=== PATIENT | female | born 1945 | race Caucasian/White ===

== ENCOUNTER → 2018-03-24 | Outpatient (CLI) | payer MEDICARE, OTHER ==
[~2018-03-24] MED LIST: ACYC-114 PO; BUTA1TAB40 PO; FURO20TA3 PO; GABA300C10 PO; MELO15TA24 PO; OMEP-110 PO; OMNIPAQUE 350 MG/ML, 100ML BOTTLE ONE; OXYC5CAP2 PO; POTASSIUM CHLORIDE PO; SIMV40TA3 PO; TIZA4CAP PO; TRAM50TA2 PO; ZOLP-413 PO
== END ==
LOC: CFH 12:39
PROVIDERS: ATTEND Family Medicine
DX: R10.9 Unspecified abdominal pain (principal)
CPT/HCPCS: 74177; 82565; Q9967

== ENCOUNTER → 2018-04-02 | Outpatient (CLI) | payer MEDICARE, OTHER ==
[~2018-04-02] MED LIST changes: -OMNIPAQUE 350 MG/ML, 100ML BOTTLE ONE
== END | disposition home or self-care (01) ==
LOC: CFH 10:43
PROVIDERS: ATTEND Family Medicine
DX: N95.8 Other specified menopausal and perimenopausal disorders (principal); R92.2 Inconclusive mammogram
CPT/HCPCS: 77063; 77067

== ENCOUNTER → 2018-09-30 | Outpatient (CLI) | payer MEDICARE, OTHER | END | disposition home or self-care (01) | LOC: CFH 09:50 | PROVIDERS: ATTEND Physical Medicine & Rehabilitation | DX: Z13.820 Encounter for screening for osteoporosis (principal); M85.88 Other specified disorders of bone density and structure, other site; M47.897 Other spondylosis, lumbosacral region; M48.07 Spinal stenosis, lumbosacral region; M25.552 Pain in left hip; M96.1 Postlaminectomy syndrome, not elsewhere classified; N95.8 Other specified menopausal and perimenopausal disorders | CPT/HCPCS: 72148; 77080 ==

== ENCOUNTER → 2021-01-10 | Outpatient (CLI) | payer MEDICARE, OTHER ==
[~2021-01-10] MED LIST changes: +CHOL10003 PO; +SIMV40TA20 PO; -SIMV40TA3 PO; +SIMV5TAB14 PO; +VENL37.57 PO
== END | disposition home or self-care (01) ==
LOC: STAR 10:16
PROVIDERS: ATTEND Obstetrics & Gynecology Female Pelvic Medicine and Reconstructive Surgery
DX: Z01.818 Encounter for other preprocedural examination (principal); R10.2 Pelvic and perineal pain; N81.10 Cystocele, unspecified; N81.6 Rectocele; N39.3 Stress incontinence (female) (male); Z20.822 Contact with and (suspected) exposure to COVID-19
CPT/HCPCS: 93005; U0003

== ENCOUNTER 2021-01-16 05:22 | Day surgery (SDC) | payer MEDICARE, OTHER ==
[~2021-01-16] VITALS: Ht 157.5 cm; Wt 84.7 kg
[2021-01-16 06:15] VITALS: BP 131/85
[2021-01-16] MEDS ORDERED: CHLORHEXIDINE 15 ML UDC ONE (06:17)
[2021-01-16] MEDS ORDERED: CHLORHEXIDINE 15 ML UDC MM ONE (06:30)
[2021-01-16] MEDS ORDERED: LACTATED RINGERS 1,000 ML IV SCH (06:30)
[2021-01-16] MEDS ORDERED: EPINEPHRINE 1 MG/ML, 1ML ONE (06:51)
[2021-01-16] MEDS ORDERED: FUROSEMIDE 20 MG/2 ML ONE (06:51)
[2021-01-16] MEDS ORDERED: BUPIVACAINE/PF 0.25% ONE (06:51)
[2021-01-16] MEDS ORDERED: NEOMY/POLYMYXIN B GU IRR. 1 ML ONE (06:52)
[2021-01-16] MEDS ORDERED: FENTANYL PF 100 MCG/2ML ONE (07:19)
[2021-01-16] MEDS ORDERED: PROPOFOL 100 ML ONE (07:22)
[2021-01-16] MEDS ORDERED: PROPOFOL 50 ML ONE (07:33)
[2021-01-16] MEDS ORDERED: ONDANSETRON 2MG/ML, 2ML ONE ×2 (08:07→08:25)
[2021-01-16] MEDS ORDERED: ROCURONIUM 10MG/ML,5ML ONE (08:07)
[2021-01-16] MEDS ORDERED: PROPOFOL 10 MG/ML, 20ML ONE (08:07)
[2021-01-16] MEDS ORDERED: NEOSTIGMINE 1 MG/ML, 10ML ONE (08:07)
[2021-01-16] MEDS ORDERED: CEFAZOLIN 1,000 MG ONE (08:07)
[2021-01-16] MEDS ORDERED: DEXAMETHASONE 4 MG/ML, 1ML ONE (08:07)
[2021-01-16] MEDS ORDERED: SUCCINYLCHOLINE 20 MG/ML, 10ML ONE (08:07)
[2021-01-16] MEDS ORDERED: GLYCOPYRROLATE 0.2MG/1ML, 5ML ONE (08:07)
[2021-01-16] MEDS ORDERED: FENTANYL PF 100 MCG/2ML IV PRN (08:30)
[2021-01-16] MEDS ORDERED: OXYcodone 5 MG/5 ML ORAL.SOL UDC PO PRN (08:30)
[2021-01-16] MEDS ORDERED: PROMETHAZINE 25 MG/ML, 1ML IV PRN (08:30)
[2021-01-16] MEDS ORDERED: hydrALAzine 20 MG/ML, 1ML IV PRN (08:30)
[2021-01-16] MEDS ORDERED: DIAZEPAM 5 MG/ML, 2ML IVPush PRN (08:30)
[2021-01-16] MEDS ORDERED: HYDROmorphone 2 MG/ML, 1ML IVPush PRN (08:30)
[2021-01-16] MEDS ORDERED: LABETALOL 5MG/ML, 20ML IV PRN (08:30)
[2021-01-16] MEDS ORDERED: ACETAMINOPHEN 325 MG TABLET PO PRN (08:30)
[2021-01-16] MEDS ORDERED: KETOROLAC 30 MG/1 ML IV PRN (08:30)
[2021-01-16] MEDS ORDERED: ALBUTEROL SULFATE 2.5 MG/3 ML NPPB PRN (08:30)
[2021-01-16] MEDS ORDERED: MEPERIDINE/PF 25MG/0.5ML IVPush PRN (08:30)
[2021-01-16] MEDS ORDERED: KETOROLAC 30 MG/1 ML ONE (08:53)
[2021-01-16] MEDS ORDERED: ONDANSETRON 2MG/ML, 2ML IVPush ONE (09:00)
[2021-01-16] MEDS ORDERED: HYDROcodone/APAP 5/325 TABLET ONE (09:29)
[2021-01-16] MEDS ORDERED: HYDROcodone/APAP 5/325 TABLET PO PRN (09:30)
== END 2021-01-16 10:15 | disposition home or self-care (01) ==
LOC: OUT 05:22
PROVIDERS: ATTEND Obstetrics & Gynecology Female Pelvic Medicine and Reconstructive Surgery
DX: N81.89 Other female genital prolapse (principal); N39.46 Mixed incontinence; N81.11 Cystocele, midline; N81.5 Vaginal enterocele; N81.6 Rectocele; E78.00 Pure hypercholesterolemia, unspecified; K21.9 Gastro-esophageal reflux disease without esophagitis; Z79.1 Long term (current) use of non-steroidal anti-inflammatories (NSAID); Z79.899 Other long term (current) drug therapy; Z88.2 Allergy status to sulfonamides; Z88.8 Allergy status to other drugs, medicaments and biological substances; Z91.040 Latex allergy status; Z90.710 Acquired absence of both cervix and uterus; Z87.442 Personal history of urinary calculi; Z98.890 Other specified postprocedural states
CPT/HCPCS: 57265; 57282; 57288; C1771; J0171; J0330; J0690; J1100; J1885; J1940; J2405; J2704; J2710; J3010; J7120

== ENCOUNTER → 2021-04-18 | Outpatient (CLI) | payer MEDICARE ==
[~2021-04-18] MED LIST changes: -ACYC-114 PO; +ACYC-40 PO; +OMNIPAQUE 350 MG/ML, 100ML BOTTLE ONE
== END | disposition home or self-care (01) ==
LOC: CFH 11:29
PROVIDERS: ATTEND Family Medicine
DX: N20.0 Calculus of kidney (principal); N13.30 Unspecified hydronephrosis; K76.0 Fatty (change of) liver, not elsewhere classified; M51.37 Other intervertebral disc degeneration, lumbosacral region; K57.30 Diverticulosis of large intestine without perforation or abscess without bleeding
CPT/HCPCS: 74177; 82565; Q9967

== ENCOUNTER → 2021-05-01 | Outpatient (CLI) | payer MEDICARE ==
[~2021-05-01] MED LIST changes: -OMNIPAQUE 350 MG/ML, 100ML BOTTLE ONE
== END | disposition home or self-care (01) ==
LOC: CFH 12:09
PROVIDERS: ATTEND Urology
DX: N20.0 Calculus of kidney (principal)
CPT/HCPCS: 74018

== ENCOUNTER → 2021-05-29 | Outpatient (CLI) | payer MEDICARE | END | disposition home or self-care (01) | LOC: STAR 11:38 | PROVIDERS: ATTEND Urology | DX: Z01.818 Encounter for other preprocedural examination (principal); N20.0 Calculus of kidney | CPT/HCPCS: 93005 ==

== ENCOUNTER 2021-06-20 10:05 | Outpatient (CLI) | payer MEDICARE | END 2021-06-20 23:59 | disposition home or self-care (01) | LOC: STAR 10:05 | PROVIDERS: ATTEND Surgery | DX: Z02.9 Encounter for administrative examinations, unspecified (principal) ==

== ENCOUNTER 2021-06-26 09:55 | Day surgery (SDC) | payer MEDICARE ==
[~2021-06-26] VITALS: Ht 160 cm; Wt 79.2 kg
[2021-06-26] MEDS ORDERED: CHLORHEXIDINE 15 ML UDC PO ONE (10:30)
[2021-06-26] MEDS ORDERED: LACTATED RINGERS 1,000 ML IV SCH (10:30)
[2021-06-26 10:40] VITALS: BP 111/72
[2021-06-26] MEDS ORDERED: CHLORHEXIDINE 15 ML UDC ONE (10:46)
[2021-06-26] MEDS ORDERED: FENTANYL PF 100 MCG/2ML ONE (10:49)
[2021-06-26] MEDS ORDERED: BUPIVACAINE/PF 0.25% ONE (10:59)
[2021-06-26] MEDS ORDERED: KETOROLAC 30 MG/1 ML ONE (11:21)
[2021-06-26] MEDS ORDERED: LIDOCAINE-MPF 2% ,5ML ONE (11:38)
[2021-06-26] MEDS ORDERED: PROPOFOL 10 MG/ML, 20ML ONE (11:39)
[2021-06-26] MEDS ORDERED: ONDANSETRON 2MG/ML, 2ML ONE (11:39)
[2021-06-26] MEDS ORDERED: DEXAMETHASONE 4 MG/ML, 1ML ONE (11:39)
[2021-06-26] MEDS ORDERED: METOCLOPRAMIDE 5 MG/ML, 2ML ONE (11:41)
[2021-06-26] MEDS ORDERED: ROCURONIUM 10MG/ML,5ML ONE (11:42)
[2021-06-26] MEDS ORDERED: SUCCINYLCHOLINE 20 MG/ML, 10ML ONE (11:42)
[2021-06-26] MEDS ORDERED: PROMETHAZINE 25 MG/ML, 1ML IVPush PRN (12:00)
[2021-06-26] MEDS ORDERED: ALBUTEROL SULFATE 2.5 MG/3 ML NPPB PRN (12:00)
[2021-06-26] MEDS ORDERED: MEPERIDINE/PF 25MG/0.5ML IVPush PRN (12:00)
[2021-06-26] MEDS ORDERED: ACETAMINOPHEN 325 MG TABLET PO PRN (12:00)
[2021-06-26] MEDS ORDERED: MIDAZOLAM 1 MG/ML, 2ML IV PRN (12:00)
[2021-06-26] MEDS ORDERED: LABETALOL 5MG/ML, 20ML IV PRN (12:00)
[2021-06-26] MEDS ORDERED: FENTANYL PF 100 MCG/2ML IV PRN (12:00)
[2021-06-26] MEDS ORDERED: HYDROmorphone 1 MG/ML, 1ML INJ IVPush PRN (12:00)
[2021-06-26] MEDS ORDERED: OXYcodone 5 MG/5 ML ORAL.SOL UDC PO PRN (12:00)
== END 2021-06-26 14:30 | disposition home or self-care (01) ==
LOC: OUT 09:55
PROVIDERS: ATTEND Surgery
DX: R22.1 Localized swelling, mass and lump, neck (principal); K21.9 Gastro-esophageal reflux disease without esophagitis; E78.5 Hyperlipidemia, unspecified; G47.33 Obstructive sleep apnea (adult) (pediatric); E66.9 Obesity, unspecified; Z86.718 Personal history of other venous thrombosis and embolism; Z88.8 Allergy status to other drugs, medicaments and biological substances; Z91.040 Latex allergy status
CPT/HCPCS: 21552; 88304; J0330; J1100; J1885; J2405; J2704; J2765; J3010; J7120; 88305